=== PATIENT | female | born 1990 | race Caucasian/White ===

== ENCOUNTER 2024-05-22 11:45 | Emergency (ER) | payer OTHER, SELFPAY ==
--- NOTE | ~2024-05-22 | XR_ITS ---
XR chest 2V Ordering provider: France Kaufman APRN History: 33 years Female with . productive cough X 5 DAYS . Comparison: None. FINDINGS: MEDIASTINUM: The cardiac silhouette is not enlarged. LUNGS: No infiltrates, effusions or pneumothorax. OTHER: No free air under the diaphragm. Degenerative changes of the spine. IMPRESSION: No acute cardiopulmonary pathology. Reviewed, dictated and finalized at location A. NE EQUIPMENT PRESERVATION INSPECTOR
[2024-05-22 11:53] VITALS: BP 117/67; PULSE 69; RESP 16; TEMP 36.6; O2SAT 99
--- NOTE | 2024-05-22 12:02 | ED_ITS ---
HPI - URI/Sore Throat General Chief Complaint: Upper Respiratory Infection Stated Complaint: cough congestion / body aches Time Seen by Provider: 05/22/24 12:17 Source: patient, RN notes reviewed and old records reviewed Mode of arrival: ambulatory Limitations: no limitations History of Present Illness HPI Narrative: patient presents with complaints of cough, chills, body aches. She denies any fevers. She does report multiple sick contacts. She has been taking Mucinex and [place] for her symptoms with moderate relief. She reports cough becomes worse when she lies down at night. She is in no distress, including respiratory distress. Related Data Allergies Allergy/AdvReac Type Severity Reaction Status Date / Time hydrocodone AdvReac Mild Hives Verified 05/22/24 12:15 Review of Systems Review of Systems: All systems reviewed & are unremarkable except as noted in HPI and below Constitutional: Constitutional: Reports as per HPI, Reports no additional constitutional complaints, Reports body ache(s), Reports chills and Reports lethargy ENT: Reports system reviewed and no additional complaints, except as documented Cardiovascular: Cardiovascular: Reports no additional cardiovascular complaints Respiratory: Respiratory: Reports no additional respiratory complaints, Reports chest congestion and Reports cough Gastrointestinal: Gastrointestinal: Reports no additional gastrointestinal complaints Exam Const: General: cooperative, no acute distress, alert and awake Orientation/consciousness: oriented to person, oriented to place and oriented to time HENMT: Head: normal to inspection Ears: TM's normal bilaterally Mouth: Yes moist mucous membranes Throat: posterior oropharynx normal Resp: Effort & Inspection: normal respiratory effort and able to speak in complete sentences Auscultation: clear to auscultation bilaterally, no crackles, no rales, no rhonchi and no wheezes Cardio: Palpation: normal PMI Rate: regular rate Rhythm: regular rhythm Heart sounds: S1 normal heart sound present and S2 normal heart sound present Neuro: General: oriented to person, oriented to place and oriented to time Cranial nerves: Yes CN's II-XII intact bilaterally Psych: Appearance: grossly normal Thought process: Normal thought process present Insight: Good insight present (Psych) Judgement: Good judgement present (Psych) Course Course Level of Care: Express Care Visit Vital Signs Vital signs: Vital Signs Temperature 97.9 F 05/22/24 11:53 Pulse Rate 69 05/22/24 11:53 Respiratory Rate 16 05/22/24 11:53 Blood Pressure 117/67 05/22/24 11:53 Pulse Oximetry 99 05/22/24 11:53 Oxygen Delivery Room Air 05/22/24 11:53 Temperature 97.9 F 05/22/24 11:53 Pulse Rate 69 05/22/24 11:53 Respiratory Rate 16 05/22/24 11:53 Blood Pressure 117/67 05/22/24 11:53 Pulse Oximetry 99 05/22/24 11:53 Oxygen Delivery Room Air 05/22/24 11:53 MDM - URI/Sore Throat MDM Narrative Medical decision making narrative: negative COVID, negative flu, negative strep. Culture pending. Negative chest x-ray. Reassuring physical exam. Symptoms most likely viral in origin. Supportive care measures discussed. Discharge instructions reviewed with patient, as well as provided in writing per nursing staff. The instructions also include specific and strict return/GO TO THE ER as well as f/u information. All questions have been answered, and the patient deny any further questions with discharge and discharge plan. Some parts of this dictation were generated by voice recognition software and may contain typographical and/or grammatical inaccuracies. Differential Diagnosis Differential diagnosis: Likely upper respiratory infection, otitis media, viral infection, bronchitis and pharyngitis Medical Records Attestation: I reviewed the patient's medical records. Lab Data Attestation: I reviewed the patient's lab results. Labs: Lab Results 05/22/24 Range/Units 12:21 POC Influenza A Ag Negative (Negative) POC Influenza B Ag Negative (Negative) POC SARS CoV-2 Ag Negative (Negative) POC Grp A Strep Screen Negative (Negative) Imaging Data Attestation: I personally reviewed and interpreted this imaging study as follows: My impression: negative Radiologist's impression: [address] [address] XRay Report Signed Patient: Maryjane Hale : 1990 MR#: [id number] Age: 33 Acct:[id number] Loc: [facility] ADM Date: 05/22/24Attending Dr: Ordering Physician: France Kaufman FNP Date of Service: 05/22/24 Procedure(s): XR chest 2V Accession Number(s): [id number] cc: France Kaufman FNP; B[employer]ING 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 productive cough X 5 DAYS . Comparison: None. FINDINGS: MEDIASTINUM: The cardiac silhouette is not enlarged. LUNGS: No infiltrates, effusions or pneumothorax. OTHER: No free air under the diaphragm. Degenerative changes of the spine. IMPRESSION: No acute cardiopulmonary pathology. Reviewed, dictated and finalized at location A. 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
[2024-05-22 12:23] LABS: EDCOVIDSCREEN Negative (Negative); EDINFLUASCREEN Negative (Negative); EDINFLUBSCREEN Negative (Negative); EDSTREPNEGPOS1 Negative (Negative)
== END 2024-05-22 12:54 | disposition home or self-care (01) ==
PROVIDERS: Emergency Provider Nurse Practitioner Family
DX: J06.9 Acute upper respiratory infection, unspecified (principal); Z20.822 Contact with and (suspected) exposure to COVID-19
CPT/HCPCS: 71046; 87081; 87426; 87804; 87880; 99203; G0463

== ENCOUNTER 2024-07-17 08:18 | Emergency (ER) | payer OTHER, SELFPAY ==
[2024-07-17 08:19] VITALS: BP 118/65; PULSE 82; RESP 18; TEMP 36.3; O2SAT 97
[2024-07-17 09:14] LABS: Basophils Percent Auto 0.5 % (0.2-1.2); Eosinophils Absolute Auto 0.1 K/mm3 (0-0.3); Eosinophils Percent Auto 1.9 % (0-4.4); Hematocrit 43.7 % (37.0-47.0); Hemoglobin 14.1 g/dL (12.0-15.0); Immature Granulocyte Absolute 0.02 K/mm3 (0.00-0.031); Immature Granulocyte Percent A 0.4 % (0-0.5); Lymphocytes Absolute Auto 2.25 K/mm3 (0.9-3.2); Lymphocytes Percent Auto 39.8 % (18.3-44.2); Mean Corpuscular HGB Conc 32.3 g/dl (32-36); Mean Corpuscular Hemoglobin 29.2 pg (26-34); Mean Corpuscular Volume 90.5 fl (80-100); Mean Platelet Volume 10.5 fl (7.4-10.4); Monocytes Absolute Auto 0.5 K/mm3 (0.1-0.6); Monocytes Percent Auto 8.8 % (2.6-8.5); Neutrophils Absolute Auto 2.8 K/mm3 (1.3-6.7); Neutrophils Percent Auto 48.6 % (45.5-73.1); Platelet Count Result 241 k/mm3 (150-375); Red Blood Count 4.83 M/mm3 (4.2-5.4); Red Cell Distribution Width 12.6 % (11.5-14.5); White Blood Count 5.7 K/mm3 (4.5-10.0)
[2024-07-17] MEDS: PANTOPRAZOLE SODIUM IV 40 MG VIAL 80 MG IV PUSH (09:15)
[2024-07-17] MEDS: SODIUM CHLORIDE 0.9% IV 1,000 ML 999 ML IV CONT (09:15)
[2024-07-17] MEDS: FAMOTIDINE 20 MG/2 ML VIAL IV PUSH (09:15)
[2024-07-17] MEDS: ONDANSETRON INJ 4 MG/2 ML VIAL IV PUSH (09:15)
[2024-07-17 09:17] LABS: Add Urine Microscopic? NO; Appearance Urine Clear (Clear); Bilirubin Urine Negative (Negative); Blood Urine Negative (Negative); Color Urine Yellow (Yellow); Glucose Urine UA Negative (Negative); Ketones Urine Negative (Negative); Leukocyte Esterase Ur Negative LEU/UL (Negative); Nitrate Urine Negative (Negative); Protein Urine Negative (Negative); Specific Grav Ur 1.019 (1.001-1.035); Urobilinogen Urine 0.2 mg/dL (<2.0); pH Urine 5.5 (5.0-9.0)
--- NOTE | 2024-07-17 09:17 | ED.GENADULT ---
HPI - General Adult General Chief complaint: Unspecified Stated complaint: sick case Time Seen by Provider: 07/17/24 08:25 History of Present Illness HPI narrative: 33-year-old female presented to the emergency department for evaluation for persistent GI illness. Patient states that she began having symptoms on Wednesday presented to urgent care but feels that symptoms worsened yesterday and into this morning. Patient states she has been having nausea vomiting and inability to keep food down. Patient was having symptoms of lightheaded and dizziness. Patient does complain of some left upper quadrant abdominal pain. Related Data Allergies Allergy/AdvReac Type Severity Reaction Status Date / Time hydrocodone Allergy Mild Hives Verified 07/17/24 08:33 Review of Systems Review of Systems: All systems reviewed & are unremarkable except as noted in HPI and below Exam Narrative: APPEARANCE: Well appearing, no pain, no distress, well-nourished. HEAD: normocephalic, atraumatic. EYES: PERRLA/EOMI, conjunctivae clear. NOSE: Normal no drainage EARS:TMS clear with good light reflex. THROAT: Pharynx clear, no exudate. NECK: Supple. No adenopathy, no masses. RESPIRATORY: Airway patent, respirations nonlabored. Clear to auscultation bilaterally, no rales, rhonchi, wheezing. CARDIOVASCULAR: Regular rate and rhythm without murmurs rubs or gallops. ABDOMINAL: Left upper quadrant tenderness to palpation MUSCULOSKELETAL: Moves all extremities. Strength/ROM intact, No edema, No calf tenderness. NEURO: Alert. Cranial nerves II through XII intact. Good gait. Good coordination SKIN: Warm, dry. Normal Color Course Vital Signs Vital signs: Vital Signs Temperature 97.4 F L 07/17/24 08:19 Pulse Rate 82 07/17/24 08:19 Respiratory Rate 18 07/17/24 08:19 Blood Pressure 118/65 07/17/24 08:19 Pulse Oximetry 97 07/17/24 08:19 Temperature 97.6 F 07/17/24 10:24 Pulse Rate 69 07/17/24 10:24 Respiratory Rate 16 07/17/24 10:24 Blood Pressure 100/77 07/17/24 10:24 Pulse Oximetry 99 07/17/24 10:24 Medical Decision Making [facility] Narrative Medical decision making narrative: 33-year-old female presents to the emergency department for evaluation for persistent nausea vomiting diarrhea and left upper quadrant abdominal pain. Patient was treated with Zofran, IV fluids IV famotidine IV Protonix. On re-evaluation patient states she feels significantly improved and patient has had no further nausea and vomiting. Patient reports her left upper quadrant abdominal pain most likely gastritis has resolved. Patient was afebrile with no leukocytosis and hemoglobin of 14.1. Patient has no acute abnormalities on her CMP including normal potassium chloride. No abnormalities for her creatinine lactic acid was 1.5. UA was negative for acute infection. Patient was updated results of the workup. Suspect patient has a viral etiology causing her nausea vomiting and diarrhea. Patient was advised to follow a clear liquid diet for the next 1-3 days and patient will be started on omeprazole for possible gastritis and patient will be provided Zofran for nausea control. Patient did request additional days off from work. Patient was encouraged close follow-up with primary care physician. All questions concerns were addressed. Differential Diagnosis Differential Diagnosis: Colitis, diverticulitis, gastritis, viral syndrome, dehydration Vital Signs Vital Signs: Vital Signs Temperature 97.4 F L 07/17/24 08:19 Pulse Rate 82 07/17/24 08:19 Respiratory Rate 18 07/17/24 08:19 Blood Pressure 118/65 07/17/24 08:19 Pulse Oximetry 97 07/17/24 08:19 Temperature 97.6 F 07/17/24 10:24 Pulse Rate 69 07/17/24 10:24 Respiratory Rate 16 07/17/24 10:24 Blood Pressure 100/77 07/17/24 10:24 Pulse Oximetry 99 07/17/24 10:24 Lab Data Lab results reviewed: Yes I reviewed the patient's lab results. 07/17/24 09:03 07/17/24 09:03 Labs: Lab Results 07/17/24 Range/Units 09:03 WBC 5.7 (4.5-10.0) K/mm3 RBC 4.83 (4.2-5.4) M/mm3 Hgb 14.1 (12.0-15.0) g/dL Hct 43.7 (37.0-47.0) % MCV 90.5 (80-100) fl MCH 29.2 (26-34) pg MCHC 32.3 (32-36) g/dl RDW 12.6 (11.5-14.5) % Plt Count 241 (150-375) k/mm3 MPV 10.5 H (7.4-10.4) fl Immature Gran % (Auto) 0.4 (0-0.5) % Neut % (Auto) 48.6 (45.5-73.1) % Lymph % (Auto) 39.8 (18.3-44.2) % [place] % (Auto) 8.8 H (2.6-8.5) % Eos % (Auto) 1.9 (0-4.4) % Baso % (Auto) 0.5 (0.2-1.2) % Lymph # (Auto) 2.25 (0.9-3.2) K/mm3 [place] # (Auto) 0.5 (0.1-0.6) K/mm3 Eos # (Auto) 0.1 (0-0.3) K/mm3 Baso # (Auto) 0.0 (0.0-0.1) K/mm3 Abs Immat Gran (auto) 0.02 (0.00-0.031) K/mm3 Absolute Neuts (auto) 2.8 (1.3-6.7) K/mm3 Absolute Nucleated RBC 0.000 (0.0-0.012) K/mm3 Nucleated RBC % 0.0 (0.0-0.2) % PT 13.2 (11.1-14.7) Seconds INR 1.0 APTT 26.4 (22.3-36.8) Seconds Sodium 139 (137-145) mmol/L Potassium 4.1 (3.4-5.0) mmol/L Chloride 105 (98-107) mmol/L Carbon Dioxide 23 (22-30) mmol/L Anion Gap 11 (4-12) mmol/L BUN 15 (7-17) mg/dL Creatinine 0.55 L (0.7-1.0) mg/dL Estim Creat Clear Calc 177 ml/min Estimated GFR > 60 (59 - ) Glucose 99 (65-110) mg/dL Lactic Acid 1.5 (0.7-2.0) mmol/L Calcium 9.3 (8.4-10.2) mg/dL Total Bilirubin 0.4 (0.2-1.3) mg/dL AST 23 (14-36) U/L ALT 20 (6-35) U/L Alkaline Phosphatase 47 (38-126) U/L Total Protein 8.0 (6.3-8.2) g/dL Albumin 4.4 (3.5-5.1) g/dL Urine Color Yellow (Yellow) Urine Appearance Clear (Clear) Urine pH 5.5 (5.0-9.0) Ur Specific [place] 1.019 (1.001-1.035) Urine Protein Negative (Negative) mg/dL Urine Glucose (UA) Negative (Negative) mg/dL Urine Ketones Negative (Negative) mg/dL Ur Blood (Man) Negative (Negative) Urine Nitrate Negative (Negative) Urine Bilirubin Negative (Negative) Urine Urobilinogen 0.2 (<2.0) mg/dL Leukocyte Esterase Rfl Negative (Negative) PARKER/UL Discharge Plan Discharge Clinical Impression: Nausea vomiting and diarrhea Patient Disposition: Home, Self-Care Condition: Stable Instructions: Antibiotic Form, Clear Liquid Diet (ED), Acute Nausea and Vomiting (DC) Additional Instructions: Omeprazole as directed for 14 days. Zofran as needed for nausea control. Clear liquid diet for the next 1-3 days. Advance to bland diet as tolerated. Have close follow-up with primary care physician. If you have worsening symptoms then please call or return to the emergency department. Patient Language: Telugu Prescriptions: New omeprazole 20 mg capsule,delayed release(DR/EC) 20 mg PO DAILY 14 Days Qty: 14 0RF ondansetron 4 mg tablet,disintegrating 4 mg PO Q8H PRN (Reason: nausea and vomiting) Qty: 14 0RF No Action fluticasone propionate [Flonase Allergy Relief] 50 mcg/actuation spray,suspension 1 spray intranasal DAILY Qty: 16 0RF Rx Instructions: administer into each nostril Follow-up/Referrals: UNKNOWN,DOCTOR [Primary Care Provider] - Stand Alone Forms: Work/School Release IP
[2024-07-17 09:30] LABS: Partial Thromboplastin Time 26.4 Seconds (22.3-36.8); Prothrombin Time 13.2 Seconds (11.1-14.7)
[2024-07-17 09:32] LABS: Lactic Acid Reflex 1.5 mmol/L (0.7-2.0)
[2024-07-17 09:33] LABS: Chloride 105 mmol/L (98-107)
[2024-07-17 09:36] LABS: Alanine Aminotransferase 20 U/L (6-35); Albumin Level 4.4 g/dL (3.5-5.1); Alkaline Phosphatase 47 U/L (38-126); Anion Gap 11 mmol/L (4-12); Aspartate Amino Transferase 23 U/L (14-36); Bilirubin,Total 0.4 mg/dL (0.2-1.3); Blood Urea Nitrogen 15 mg/dL (7-17); Calcium 9.3 mg/dL (8.4-10.2); Carbon Dioxide 23 mmol/L (22-30); Estimated CRCL calculation 177 ml/min; Estimated Glomerular Filt Rate > 60; Glucose 99 mg/dL (65-110); Potassium 4.1 mmol/L (3.4-5.0); Sodium 139 mmol/L (137-145)
[2024-07-17 10:24] VITALS: BP 100/77; PULSE 69; RESP 16; TEMP 36.4; O2SAT 99
== END 2024-07-17 10:39 | disposition home or self-care (01) ==
PROVIDERS: Emergency Provider Emergency Medicine
DX: R11.2 Nausea with vomiting, unspecified (principal); R19.7 Diarrhea, unspecified
CPT/HCPCS: 36415; 80053; 81003; 83605; 85025; 85610; 85730; 96361; 96374; 96375; 99284; J2405; J2470; J7030